=== PATIENT | male | born 1930 | race Caucasian/White ===

== ENCOUNTER 2017-05-25 23:41 | Emergency (ER) | payer OTHER, MEDICARE ==
[~2017-05-25] VITALS: Ht 172.7 cm; Wt 83.0 kg
[2017-05-25 23:52] VITALS: BP_SYST 162; BP_SYST 179; BP_DIAS 77; BP_DIAS 95; PULSE 70; RESP 18; TEMP 99.3; O2SAT 99
[2017-05-26] MEDS ORDERED: LISI40TA PO (00:28)
[2017-05-26] MEDS ORDERED: TAMS0.4C4 PO (00:28)
[2017-05-26] MEDS ORDERED: METO25TA3 PO (00:28)
[2017-05-26] MEDS ORDERED: ROPI0.25 PO (00:28)
[2017-05-26] MEDS ORDERED: ASPI81TA81 PO (00:28)
[2017-05-26] MEDS ORDERED: OMEP20TA93 PO (00:28)
[2017-05-26] MEDS ORDERED: TYLE325T PO (00:28)
[2017-05-26] MEDS ORDERED: ALBUAER3 INH (00:29)
[2017-05-26] MEDS ORDERED: RESP: ALBUTEROL 2.5 MG/IPRATROPIUM 0.5 MG NEB (SCH) NEB ONE (00:30)
[2017-05-26] MEDS ORDERED: PROZOSIN PO (00:52)
[2017-05-26] MEDS ORDERED: [UNRECOGNIZED DRUG - OTHER] PO (00:52)
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
[2017-05-26 06:22] VITALS: BP 129/69; O2SAT 99
[2017-05-26 07:40] VITALS: BP 139/75; PULSE 76; RESP 18; O2SAT 96
[2017-05-26] MEDS ORDERED: ACETAMINOPHEN 325 MG TAB PO ONE (09:15)
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
[2017-05-26 10:00] VITALS: BP 134/79
[2017-05-30] MEDS ORDERED: PRAZ1CAP PO (10:31)
== END 2017-05-26 10:19 | disposition home or self-care (01) ==
LOC: NEPE 23:41 → NEPD 05-26 10:19
DX: F43.25 Adjustment disorder with mixed disturbance of emotions and conduct (principal); F19.10 Other psychoactive substance abuse, uncomplicated; I10 Essential (primary) hypertension; I25.10 Atherosclerotic heart disease of native coronary artery without angina pectoris; J44.9 Chronic obstructive pulmonary disease, unspecified; F43.10 Post-traumatic stress disorder, unspecified; F32.9 Major depressive disorder, single episode, unspecified; Z95.0 Presence of cardiac pacemaker; Z85.05 Personal history of malignant neoplasm of liver; Z86.73 Personal history of transient ischemic attack (TIA), and cerebral infarction without residual deficits; Z79.899 Other long term (current) drug therapy
CPT/HCPCS: 94664; 99284